=== PATIENT | male | born 1950 | race Caucasian/White ===

== ENCOUNTER → 2017-09-22 | Outpatient (CLI) | payer MEDICAID ==
[2017-09-22 10:35] LABS: Basophils % (A) 1 %; CH 34.3; CHCM 36.8; Eosinophils # (A) 0.1 k/uL (0-0.7); Eosinophils % (A) 2 %; HCT 44.1 % (39.0-53.0); HDW 3.08; HGB 15.7 gm/dL (13.0-17.5); Luc # (Auto) 0.07; Luc % (Auto) 1; Lymphocytes # (A) 1.2 k/uL (1.0-4.8); Lymphocytes % (A) 21 %; MCH 33.3 pg (25.0-35.0); MCHC 35.5 g/dL (31.0-37.0); MCV 93.9 fL (80.0-100.0); Mean Platelet Volume 7.5; Monocytes # (A) 0.3 k/uL (0-1.0); Monocytes % (A) 6 %; Neutrophils # (A) 4.1 k/uL (1.3-7.7); Neutrophils % (A) 70 %; WBC 5.8 k/uL (3.8-10.6); WBC (Perox) 5.81
[2017-09-22 10:36] LABS: ALT 78 U/L (21-72); AST 56 U/L (17-59); Alkaline Phosphatase 73 U/L (38-126); Anion Gap 9 mmol/L; Blood Urea Nitrogen 14 mg/dL (9-20); Calcium 9.7 mg/dL (8.4-10.2); Carbon Dioxide 26 mmol/L (22-30); Chloride 105 mmol/L (98-107); Cholesterol 134 mg/dL (<200); Glucose 123 mg/dL (74-99); HDL Cholesterol 43 mg/dL (40-60); Non-African American GFR(MDRD) >60 (>60 ml/min/1.73 sqM); Potassium 4.6 mmol/L (3.5-5.1); Sodium 140 mmol/L (137-145); Total Bilirubin 2.7 mg/dL (0.2-1.3); Total Protein 6.8 g/dL (6.3-8.2)
[2017-09-22 11:06] LABS: Prostate Specific Antigen 0.54 ng/mL (0.00-4.00)
== END | disposition home or self-care (01) ==
LOC: LABWHC1 09:40
PROVIDERS: ATTEND Family Medicine
DX: Z00.00 Encounter for general adult medical examination without abnormal findings (principal); E78.00 Pure hypercholesterolemia, unspecified; I10 Essential (primary) hypertension
CPT/HCPCS: 36415; 80053; 80061; 84153; 85025

== ENCOUNTER → 2017-12-18 | Outpatient (CLI) | payer MEDICAID | END | disposition home or self-care (01) | LOC: LABWHC1 09:19 | PROVIDERS: ATTEND Family Medicine | DX: E29.1 Testicular hypofunction (principal) | CPT/HCPCS: 36415; 84403 ==

== ENCOUNTER → 2018-09-28 | Outpatient (CLI) | payer MEDICAID ==
[2018-09-28 09:01] LABS: Basophils % (A) 1 %; Eosinophils # (A) 0.1 k/uL (0-0.7); Eosinophils % (A) 3 %; HCT 44.9 % (39.0-53.0); HGB 15.4 gm/dL (13.0-17.5); Lymphocytes # (A) 1.3 k/uL (1.0-4.8); Lymphocytes % (A) 23 %; MCH 32.6 pg (25.0-35.0); MCHC 34.2 g/dL (31.0-37.0); MCV 95.1 fL (80.0-100.0); Mean Platelet Volume 7.6; Monocytes # (A) 0.3 k/uL (0-1.0); Monocytes % (A) 5 %; Neutrophils # (A) 3.6 k/uL (1.3-7.7); Neutrophils % (A) 67 %; Platelet Count 131 k/uL (150-450); RBC 4.72 m/uL (4.30-5.90); WBC 5.4 k/uL (3.8-10.6)
[2018-09-28 16:42] LABS: Albumin 4.4 g/dL (3.80-4.90); Albumin/Globulin Ratio 2.59 (1.20-2.10); Anion Gap 6.6 mmol/L (4.00-12.00); Calcium 9.1 mg/dL (8.7-10.3); Carbon Dioxide 27.4 mmol/L (21.6-31.8); Globulin 1.7 g/dL (2.1-3.7); LDL Cholesterol,Calculated 55.4 mg/dL (0.0-131.0); Potassium 4.5 mmol/L (3.5-5.5); Total Bilirubin 2.5 mg/dL (0.3-1.2); Total Protein 6.1 g/dL (6.2-8.2); VLDL Calculation 19.6 mg/dL (5.00-40.00)
== END | disposition home or self-care (01) ==
LOC: LABWHC1 08:18
PROVIDERS: ATTEND Family Medicine
DX: Z00.00 Encounter for general adult medical examination without abnormal findings (principal); I10 Essential (primary) hypertension; E78.00 Pure hypercholesterolemia, unspecified
CPT/HCPCS: 36415; 80053; 80061; 84153; 84443; 85025

== ENCOUNTER → 2019-03-14 | Outpatient (CLI) | payer MEDICAID ==
--- NOTE | 2019-03-14 19:38 | ECHOS ---
STRESS ECHOCARDIOGRAM DATE OF SERVICE: 03/14/2019 INDICATIONS: Sam Emery has coronary artery disease. He was referred by Dr. Cloud for a stress echo MEDICATIONS: See list. BASELINE HEART RATE: 67 BASELINE BLOOD PRESSURE: 146/47 MAXIMUM HEART RATE: 140 MAXIMUM BLOOD PRESSURE: 219/49 85% MPHR: 130 100% MPHR: 153 METS: 8.5 MAXIMUM STAGE REACHED: 3 TOTAL EXERCISE TIME: 7 minutes RESULTS: Baseline heart rate 67 beats per minute. Baseline blood pressure 146/47 mmHg. Baseline 12-lead ECG shows normal sinus rhythm with a 0.[address] depression inferolaterally. Patient exercised on a Timoteo protocol for 7 minutes achieving a peak heart rate of 140 beats per minute, hypertensive response to exercise. Peak blood pressure 219/49 mmHg. There was no definite ECG evidence for ischemia. The baseline 2D echo images showed normal limits and no arrhythmias were noted. Baseline 2D echo images showed normal LV size and systolic function without segmental wall motion abnormalities. At peak exercise, there was excellent augmentation of overall LV contractility without developing any wall motion abnormalities. At recovery, regional global LV systolic function remained normal. IMPRESSION: Average exercise capacity. Mildly hypertensive response to exercise. No ECG or echocardiographic evidence for ischemia. MMODL / IJN: [id number] /
== END | disposition home or self-care (01) ==
LOC: RADNMMAIN 09:17
PROVIDERS: ATTEND Internal Medicine Cardiovascular Disease
DX: I25.10 Atherosclerotic heart disease of native coronary artery without angina pectoris (principal)
CPT/HCPCS: 93351

== ENCOUNTER → 2019-04-21 | Outpatient (CLI) | payer MEDICAID ==
--- NOTE | 2019-05-03 14:55 | P.ARTDOP ---
Arterial Doppler LOWER EXTREMITY ARTERIAL DOPPLER: DATE OF SERVICE: 04/21/2019 Reason for study: Cold feet. Doppler waveforms: Multiphasic bilaterally throughout. Pulse volume recording: []. Pressure gradients: None. Ankle-brachial indices: Greater than 1 bilaterally. Toe pressures: [] on the right, [] on the left Impression: Normal study.
== END | disposition home or self-care (01) ==
LOC: RADUSWWP 06:50
PROVIDERS: ATTEND Family Medicine
DX: M79.662 Pain in left lower leg (principal); M79.661 Pain in right lower leg; Z88.5 Allergy status to narcotic agent
CPT/HCPCS: 93922

== ENCOUNTER → 2019-09-20 | Outpatient (CLI) | payer MEDICAID ==
[2019-09-20 11:38] LABS: Basophils % (A) 1 %; Eosinophils # (A) 0.1 k/uL (0-0.7); Eosinophils % (A) 1 %; HCT 43.2 % (39.0-53.0); HGB 15.6 gm/dL (13.0-17.5); Lymphocytes # (A) 1.3 k/uL (1.0-4.8); Lymphocytes % (A) 21 %; MCHC 36.1 g/dL (31.0-37.0); MCV 94.4 fL (80.0-100.0); Mean Platelet Volume 6.4; Monocytes # (A) 0.3 k/uL (0-1.0); Monocytes % (A) 5 %; Neutrophils # (A) 4.5 k/uL (1.3-7.7); Neutrophils % (A) 71 %; Platelet Count 135 k/uL (150-450); RBC 4.58 m/uL (4.30-5.90); RDW 12.7 % (11.5-15.5); WBC 6.3 k/uL (3.8-10.6)
[2019-09-20 16:26] LABS: African American GFR (CKD) 101.4 (60.0-200.0); Albumin 4.7 g/dL (3.80-4.90); Albumin/Globulin Ratio 2.35 (1.60-3.17); Anion Gap 7.9 mmol/L (4.00-12.00); BUN/Creat Ratio 14.44 Ratio (12.00-20.00); Calcium 9.7 mg/dL (8.7-10.3); Carbon Dioxide 27.1 mmol/L (21.6-31.8); Chol/HDL Ratio 2.98; Potassium 4.6 mmol/L (3.5-5.5); Total Protein 6.7 g/dL (6.2-8.2)
== END | disposition home or self-care (01) ==
LOC: LABWHC1 10:04
PROVIDERS: ATTEND Family Medicine
DX: Z00.00 Encounter for general adult medical examination without abnormal findings (principal); I10 Essential (primary) hypertension; E78.00 Pure hypercholesterolemia, unspecified
CPT/HCPCS: 36415; 80053; 80061; 84153; 84443; 85025

== ENCOUNTER → 2020-09-26 | Outpatient (CLI) | payer MEDICAID ==
--- NOTE | 2020-09-26 12:05 | P.STRESS ---
- Stress Test Note Stress Test Results/Findings: Exam Performed: Exam Date: Reason for Exam: Height: Weight: Protocol: Stage: Duration of Exercise: Resting Heart Rate: Resting Blood Pressure: Maximum Achieved Heart Rate: Maximum Achieved Blood Pressure: 85% PMHR: 100% PMHR: METS: Technologist Comment: Stress Test Results/Findings: Baseline 157 beats a minute, Baseline blood pressure 154/73 mmHg Patient exercised on a Timoteo protocol for 8 minutes achieving a peak heart rate of 146 beats a minute Baseline 12-lead ECG showed sinus rhythm with normal ST segments He was very short of breath by 8 minutes. He had a hypertensive response to exercise. Peak blood pressure 119 101 mmHg There is no ECG evidence for ischemia, At recovery T-wave inversions noted inferolaterally Baseline 2-D echo images showed normal LV systolic function without segmental wall motion abnormalities At peak exercise there was augmentation overall LV contractility without wall pulmonary wall motion medications At recovery reasonably systolic function remained normal Impression ALLERGY excess capacity, patient became very short of breath by 8 minutes Hypertensive response to exercise blood pressure consistently above 200 mmHg systolic and diastolic closer to 95 200 mmHg No definite ECG evidence for ischemia No echocardiographic evidence for ischemia
[2020-09-26 20:35] LABS: Chol/HDL Ratio 3.62; LDL Cholesterol,Calculated 66.6 mg/dL (0.0-131.0); VLDL Calculation 35.4 mg/dL (5.00-40.00)
== END | disposition home or self-care (01) ==
LOC: LABWHC1 09:57
PROVIDERS: ATTEND Internal Medicine Cardiovascular Disease
DX: E78.2 Mixed hyperlipidemia (principal)
CPT/HCPCS: 36415; 80061; 84450; 84460

== ENCOUNTER → 2020-09-26 | Outpatient (CLI) | payer MEDICAID ==
--- NOTE | 2020-09-27 08:47 | ECHOS ---
Stress Test Results/Findings: Exam Performed: Stress Echo Exam Date: 09/26/2020 Reason for Exam: Heart Disease Height: 74 Weight: 225 Protocol: Stress Echo Stage: 3 Duration of Exercise: 8:00 Resting Heart Rate: 57 Resting Blood Pressure: 154/73 Maximum Achieved Heart Rate: 146 Maximum Achieved Blood Pressure: 219/101 85% PMHR: 128 100% PMHR: 151 METS: Technologist Comment: Stress Test Results/Findings: Baseline 157 beats a minute, Baseline blood pressure 154/73 mmHg Patient exercised on a Timoteo protocol for 8 minutes achieving a peak heart rate of 146 beats a minute Baseline 12-lead ECG showed sinus rhythm with normal ST segments He was very short of breath by 8 minutes. He had a hypertensive response to exercise. Peak blood pressure 119 101 mmHg There is no ECG evidence for ischemia, At recovery T-wave inversions noted inferolaterally Baseline 2-D echo images showed normal LV systolic function without segmental wall motion abnormalities At peak exercise there was augmentation overall LV contractility without wall pulmonary wall motion medications At recovery reasonably systolic function remained normal Impression ALLERGY excess capacity, patient became very short of breath by 8 minutes Hypertensive response to exercise blood pressure consistently above 200 mmHg systolic and diastolic closer to 95 200 mmHg No definite ECG evidence for ischemia No echocardiographic evidence for ischemia MTDD
== END | disposition home or self-care (01) ==
LOC: RADNMMAIN 08:33
PROVIDERS: ATTEND Internal Medicine Cardiovascular Disease
DX: R06.02 Shortness of breath (principal); I10 Essential (primary) hypertension; Z88.5 Allergy status to narcotic agent; Z88.8 Allergy status to other drugs, medicaments and biological substances
CPT/HCPCS: 93351

== ENCOUNTER → 2020-10-12 | Outpatient (CLI) | payer MEDICAID ==
[2020-10-12 14:11] LABS: ALT 75 U/L (10-49); AST 73 U/L (14-35)
== END | disposition home or self-care (01) ==
LOC: LABWHC1 08:43
PROVIDERS: ATTEND Internal Medicine Cardiovascular Disease
DX: E78.2 Mixed hyperlipidemia (principal)
CPT/HCPCS: 36415; 84450; 84460

== ENCOUNTER → 2021-08-30 | Outpatient (CLI) | payer MEDICAID ==
[2021-08-30 15:48] LABS: Basophils # (A) 0.03 X 10*3/uL (0.00-0.10); Basophils % (A) 0.6 %; Eosinophils # (A) 0.09 X 10*3/uL (0.04-0.35); Eosinophils % (A) 1.7 %; HCT 43.2 % (39.6-50.0); HGB 15.4 g/dL (13.0-17.0); Lymphocytes # (A) 1.17 X 10*3/uL (0.90-5.00); Lymphocytes % (A) 22.2 %; MCH 33.9 pg (27.0-32.0); MCHC 35.6 g/dL (32.0-37.0); MCV 95.2 fL (80.0-97.0); Mean Platelet Volume 10.8 fL (9.5-12.2); Monocytes % (A) 7.6 %; Neutrophils # (A) 3.58 X 10*3/uL (1.80-7.70); Neutrophils % (A) 67.9 %; Platelet Count 117 X 10*3/uL (140-440); RBC 4.54 X 10*6/uL (4.40-5.60); RDW 12.4 % (11.5-14.5); WBC 5.27 X 10*3/uL (4.50-10.00)
[2021-08-30 19:50] LABS: Chol/HDL Ratio 2.97 Ratio; HDL Cholesterol 41.1 mg/dL (40.00-60.00); LDL Cholesterol,Calculated 54.7 mg/dL (0.0-131.0); Prostate Specific Antigen 0.5 ng/mL (0.00-6.50); VLDL Calculation 26.2 mg/dL (5.00-40.00)
[2021-08-30 23:02] LABS: African American GFR (CKD) 96.7 (60.0-200.0); Albumin 4.4 g/dL (3.8-4.9); Albumin/Globulin Ratio 2.3 (1.60-3.17); Anion Gap 16.2 mmol/L (4.00-12.00); BUN/Creat Ratio 16.54 Ratio (12.00-20.00); Blood Urea Nitrogen 15.3 mg/dL (9.0-27.0); Calcium 8.9 mg/dL (8.7-10.3); Carbon Dioxide 18.9 mmol/L (21.6-31.8); Globulin 1.9 g/dL (1.6-3.3); Non-African American GFR(CKD) 83.4 (60.0-200.0); Total Bilirubin 3.8 mg/dL (0.30-1.20); Total Protein 6.3 g/dL (6.2-8.2)
== END | disposition home or self-care (01) ==
LOC: LABWHC1 08:30
PROVIDERS: ATTEND Family Medicine
DX: I10 Essential (primary) hypertension (principal)
CPT/HCPCS: 36415; 80053; 80061; 84153; 84443; 85025

== ENCOUNTER → 2022-12-08 | Outpatient (CLI) | payer MEDICARE ==
[2022-12-08 16:35] LABS: African American GFR (CKD) >90 (>60 ml/min/1.73 sqM); Blood Urea Nitrogen 14 mg/dL (9-20); Non-African American GFR(CKD) 85 (>60 ml/min/1.73 sqM)
--- NOTE | 2022-12-08 21:09 | CT ---
EXAMINATION TYPE: CT abdomen pelvis w con CT DLP: 2372.5 mGycm, Automated exposure control for dose reduction was used. DATE OF EXAM: 12/08/2022 6:18 PM COMPARISON: None CLINICAL INDICATION:Male, 72 years old with history of R74.8 elevated liver enzymes; Elevated Liver e nzymes. TECHNIQUE: Axial CT of the abdomen and pelvis. Sagittal and coronal reformats were created on a [employer] workstation. Contrast used:90cc mL of Isovue 300 with IV Contrast, Oral contrast used: with Oral Contrast FINDINGS: LOWER CHEST: Unremarkable ABDOMEN LIVER: Diffusely hypoattenuating parenchyma. GALLBLADDER AND BILE DUCTS: The gallbladder is surgically absent. PANCREAS: Unremarkable. SPLEEN: Enlarged measuring up to 16.4 cm. ADRENAL GLANDS: Unremarkable. KIDNEYS AND URETERS: No evidence of hydronephrosis or renal calculus. The ureters are unremarkable. PELVIS BLADDER: Unremarkable REPRODUCTIVE: Unremarkable. ABDOMEN & PELVIS STOMACH AND BOWEL: No evidence of bowel obstruction. PERITONEUM/RETROPERITONEUM: No evidence of pneumoperitoneum or free fluid. . VASCULATURE: No evidence of aortic aneurysm. MUSCULOSKELETAL: No acute osseous abnormalities LYMPH NODES: No gross evidence for lymphadenopathy. SOFT TISSUE/ABDOMINAL WALL: Bilateral fat-containing inguinal hernias. IMPRESSION: 1. Hepatic steatosis without evidence for suspicious mass or ductal dilation. No acute intracranial process identified. 2. Splenomegaly.
== END | disposition home or self-care (01) ==
LOC: RADCTMAIN 15:52
PROVIDERS: ATTEND Family Medicine
DX: K76.0 Fatty (change of) liver, not elsewhere classified (principal); I10 Essential (primary) hypertension; R16.1 Splenomegaly, not elsewhere classified; R74.8 Abnormal levels of other serum enzymes
CPT/HCPCS: 82565; 84520; 74177; 36415; Q9967 ×2

== ENCOUNTER → 2023-02-19 | Outpatient (CLI) | payer MEDICARE ==
--- NOTE | 2023-02-19 13:28 | MM ---
Reason for Exam: Clinical finding. Baseline mammogram. Indicated Problems: Lump or thickening of the left side for 2 Month(s). Prior Study Comparison: Patient's first Mammogram. Tissue Density: There are scattered fibroglandular densities. Findings: Analyzed By CAD. There is characteristic flame-shaped subareolar density on the left at the patient's palpable site. Asymmetric change compared to the right side. No discrete mass, suspicious microcalcification, or other abnormality is seen. Overall Assessment: Benign, BI-RAD 2 Management: Diagnostic Breast Ultrasound of the left breast. Only if further clinically indicated. Otherwise, further clinical management of patient's asymmetric, benign left-sided gynecomastia. Results were given to the patient verbally at the time of exam. Electronically signed and approved by: Luh Thapa M.D. Radiologist
== END | disposition home or self-care (01) ==
LOC: RADMAMWWP 12:48
PROVIDERS: ATTEND Family Medicine
DX: N63.20 Unspecified lump in the left breast, unspecified quadrant (principal)
CPT/HCPCS: 77066; G0279; 77062

== ENCOUNTER → 2023-12-14 | Outpatient (CLI) | payer MEDICARE ==
--- NOTE | 2023-12-14 16:32 | XR ---
EXAMINATION TYPE: XR chest 2V DATE OF EXAM: 12/14/2023 COMPARISON: 04/05/2012 INDICATION: Productive cough TECHNIQUE: Frontal and lateral views of the chest are obtained. FINDINGS: The heart size is normal. The pulmonary vasculature is normal. The lungs are clear. IMPRESSION: 1. No acute pulmonary process.
== END | disposition home or self-care (01) ==
LOC: RADXRMAIN 14:03
PROVIDERS: ATTEND Family Medicine
DX: R05.8 Other specified cough (principal)
CPT/HCPCS: 71046

== ENCOUNTER → 2023-12-18 | Outpatient (CLI) | payer MEDICARE ==
[2023-12-18 16:38] LABS: ALT 42 U/L (10-49); AST 43 U/L (14-35); Chol/HDL Ratio 3.38 Ratio; LDL Cholesterol,Calculated 66.8 mg/dL (0.0-131.0)
== END | disposition home or self-care (01) ==
LOC: LABWHC1 08:35
PROVIDERS: ATTEND Internal Medicine Cardiovascular Disease
DX: E78.2 Mixed hyperlipidemia (principal)
CPT/HCPCS: 36415; 80061; 84450; 84460

== ENCOUNTER → 2024-08-04 | Outpatient (CLI) | payer MEDICARE ==
--- NOTE | 2024-08-05 14:40 | XR ---
EXAMINATION TYPE: XR chest 2V DATE OF EXAM: 08/04/2024 COMPARISON: 12/14/2023 HISTORY: 74-year-old male J18.9, pneumonia, coughing and wheezing TECHNIQUE: Frontal and lateral views FINDINGS: The heart is normal size. Aorta and pulmonary vasculature within normal limits. Possible subtle patch y left infrahilar density. Mild hyperinflation. No consolidation or pleural effusion. IMPRESSION: 1. Possible early patchy left perihilar infiltrate. Early pneumonia not excluded. 2. No other acute process seen. [facility], Workstation: [facility], 08/05/2024 2:38 PM
== END | disposition home or self-care (01) ==
LOC: RADXRMAIN 14:39
PROVIDERS: ATTEND Family Medicine
DX: J18.9 Pneumonia, unspecified organism (principal)
CPT/HCPCS: 71046

== ENCOUNTER → 2024-09-14 | Outpatient (CLI) | payer MEDICARE ==
[2024-09-14 16:05] LABS: Basophils # (A) 0.09 X 10*3/uL (0.00-0.10); Basophils % (A) 0.5 %; Eosinophils # (A) 0.23 X 10*3/uL (0.04-0.35); Eosinophils % (A) 1.4 %; HCT 48.9 % (39.6-50.0); HGB 16.1 g/dL (13.0-17.0); Lymphocytes # (A) 2.52 X 10*3/uL (0.90-5.00); Lymphocytes % (A) 15.3 %; MCH 29.6 pg (27.0-32.0); MCHC 32.9 g/dL (32.0-37.0); MCV 89.9 FL (80.0-97.0); Mean Platelet Volume 10.6 FL (9.5-12.2); Monocytes # (A) 1.21 X 10*3/uL (0.20-1.00); Monocytes % (A) 7.3 %; NRBC Per 100 WBC 0 X 10*3/uL (0.00-0.01); Neutrophils # (A) 12.37 X 10*3/uL (1.80-7.70); Neutrophils % (A) 74.9 %; Platelet Count 307 X 10*3/uL (140-440); RBC 5.44 X 10*6/uL (4.40-5.60); WBC 16.52 X 10*3/uL (4.50-10.00)
[2024-09-14 16:31] LABS: Blood Urea Nitrogen 11.9 mg/dL (9.0-27.0); Carbon Dioxide 23.7 mmol/L (21.6-31.8); Chloride 104 mmol/L (96-109); Chol/HDL Ratio 3.05 Ratio; Glucose 140 mg/dL (70-110); Potassium 4.2 mmol/L (3.5-5.5); Sodium 139 mmol/L (135-145)
[2024-09-14 16:32] LABS: ALT 63 U/L (10-49); AST 49 U/L (14-35); Albumin 4.4 g/dL (3.8-4.9); Albumin/Globulin Ratio 1.91 Ratio (1.60-3.17); Alkaline Phosphatase 76 U/L (41-126); Calcium 9.5 mg/dL (8.7-10.3); Globulin 2.3 g/dL (1.6-3.3); Total Bilirubin 2.7 mg/dL (0.3-1.2); Total Protein 6.7 g/dL (6.2-8.2)
== END | disposition home or self-care (01) ==
LOC: LABWHC1 10:27
PROVIDERS: ATTEND Family Medicine
DX: Z00.00 Encounter for general adult medical examination without abnormal findings (principal); E78.5 Hyperlipidemia, unspecified; I10 Essential (primary) hypertension; K21.9 Gastro-esophageal reflux disease without esophagitis; Z87.891 Personal history of nicotine dependence
CPT/HCPCS: 36415; 80053; 80061; 85025